=== PATIENT | male | born 1990 | race Caucasian/White ===

== ENCOUNTER 2019-10-02 13:44 | Emergency (ER) | payer MEDICAID ==
[2019-10-02 14:09] VITALS: BP 137/82
== END 2019-10-02 16:05 | disposition left against medical advice (07) ==
LOC: ER 13:44
DX: Z53.21 Procedure and treatment not carried out due to patient leaving prior to being seen by health care provider (principal); R53.1 Weakness

== ENCOUNTER 2020-01-07 23:13 | Emergency (ER) | payer MEDICAID ==
[2020-01-07] MEDS ORDERED: OXYCODONE-ACETAMINOPHEN 5-325 MG TABLET PO ONE (23:45)
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
[2020-01-08] MEDS ORDERED: OXYCODONE-ACETAMINOPHEN 5-325 MG TABLET PO ONE (00:22)
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
--- NOTE | 2020-01-08 00:44 | RADIOLOGY REPORT (SQ) ---
Left shoulder x-ray three view on 01/07/2020 at 11:55 PM Clinical indications: Left shoulder pain and deformity COMPARISON: None FINDINGS: There is a widening of the AC joint with elevation of the distal clavicle in relation to the acromion consistent with grade 3 AC joint separation. There are no fractures. The glenohumeral joint is well located. No other bony abnormality is noted. IMPRESSION: Grade 3 AC joint separation.
[2020-01-08 00:46] VITALS: BP 115/80
== END 2020-01-08 00:46 | disposition home or self-care (01) ==
LOC: ER 23:13
DX: S43.005A Unspecified dislocation of left shoulder joint, initial encounter (principal); V28.4XXA Motorcycle driver injured in noncollision transport accident in traffic accident, initial encounter; F17.200 Nicotine dependence, unspecified, uncomplicated
CPT/HCPCS: 99283

== ENCOUNTER 2020-01-12 08:02 | Emergency (ER) | payer MEDICAID ==
[2020-01-12 08:07] VITALS: BP 123/103
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
--- OUTSIDE RECORDS SUMMARY | 2020-01-13 18:07 | XMS REPORT ---
:1990 [facility] [address] [place] [address] Care Team Providers Name Role Phone Unavailable Unavailable Unavailable Allergies, Adverse Reactions, Alerts This patient has no known allergies or adverse reactions. Medications Ordered Filled Start Stop Current Ordering Indication Dosage Frequency Signature Comments Components Medication Medication Date Date Medication? Clinician (SIG) Name Name oxycodone-a No oxycodone- cetaminophe acetaminop n 5 mg-325 hen 5 mg tablet mg-325 mg Take by tablet oral route Take by as needed oral route for 2 days. as needed for 2 days. Problems Condition Condition Condition Status Onset Resolution Last Treatin g Comments Name Details Category Date Date Treatment Clinician Date Shoulder Shoulder Problem Active 2019-03 pain Pain 03-14 00:00: 00 Procedures This patient has no known procedures. Results This patient has no known results. Assessments Condition Name Status Diagnosis Date Treating Clinici an Shoulder pain Active 2020-01-12 16:25:33 Closed traumatic dislocation Active 2020-01-13 09:40:12 acromioclavicular joint Encounters Start End Encounter Admission Attending Care Care Encounter Date/Time Date/Time Type Type Clinicians Facility Department ID 2020-01-13 2020-01-13 Ole Dyert [id number] 00:00:00 00:00:00 MD Anna: [facility] [id number] [place] [address], [address] [place] [id number] , Ph. Plan of Treatment Planned Activity Planned Date Details Comments Future Appointment 2020-02-17 10:50:00 lOe Castillo [address] [place] [address]; [address] [place] [id number] Social History Smoking Status Start Date Stop Date Heavy Tobacco Smoker Vital Signs Vital Name Observation Time Observation Value Comments BP Systolic 2020-01-13 00:00:00 121 mm[Hg] Body Weight 2020-01-13 00:00:00 180 [lb_av] BP Diastolic 2020-01-13 00:00:00 80 mm[Hg] Height 2020-01-13 00:00:00 72 [in_i] BMI (Body Mass Index) 2020-01-13 00:00:00 24.4 kg/m2 Hospital Discharge Instructions 1. Shoulder pain shoulder pain: care instructions 2. Closed traumatic dislocation acromioclavicular joint shoulder separation: care instructions Discussion Note Patient Education Literature wasshared regarding the working diagnosis. ?The patient will read the information and at this point hasno further questions regarding what was discussed. ?The [employer] diagnosis specific handout was given to them and reviewed in detail today. f/u 1 mo All the patients questions have been fully addressed at this time.
== END 2020-01-12 08:41 | disposition home or self-care (01) ==
LOC: ER 08:02
DX: S43.005A Unspecified dislocation of left shoulder joint, initial encounter (principal); V29.9XXA Motorcycle rider (driver) (passenger) injured in unspecified traffic accident, initial encounter; Z76.0 Encounter for issue of repeat prescription
CPT/HCPCS: 99284